=== PATIENT | male | born 1965 | race Hispanic/Latino ===

== ENCOUNTER → 2021-12-27 | Day surgery (SDC) | payer OTHER ==
[2021-12-22 10:36] VITALS: BP 135/78
--- NOTE | 2021-12-22 10:52 | PCM.EKG ---
[facility] Test Date: 2021-12-22 Test Time: 10:49:15 Pat Name: ASH SAENZ Department: Room: Gender: M Pot Operator: JENNIFER : 1965 Requested By: ANABELL SMITH Order Number: [id number] Reading MD: Measurements Intervals [place] Rate: 60 P: 13 HI: 194 QRS: 30 QRSD: 86 T: 29 QT: 446 QTc: 446 Interpretive Statements Normal sinus rhythm No previous ECG available for comparison Please click the below link to view image of tracing.
[2021-12-22 11:02] LABS: LYMPHOCYTES % 35.3 % (24.0-44.0); MEAN CORP HGB 28.9 pg (26-34); MONOCYTES % 9.8 % (5.0-12.0); NEUTROPHILS % 50.1 % (41.0-85.0); PLATELET COUNT 254 10^3/uL (150-400); RED CELL DISTRIBUTION WIDTH 13.2 % (11.5-14.5)
[2021-12-22 11:03] LABS: BASOPHIL % 0.4 % (0.0-0.2); EOSINOPHIL # 0.2 10^3/uL (0.0-0.2); EOSINOPHIL % 2.8 % (0.0-5.0); LYMPHOCYTES # 2.63 10^3/uL1 (1.0-4.8); MONOCYTES # 0.7 10^3/uL (0.3-0.8); NEUTROPHIL # 3.7 10^3/uL (1.8-7.7)
[~2021-12-27] VITALS: Ht 167.6 cm; Wt 112.9 kg
[2021-12-27] VITALS (12 sets, daily range): BP systolic 97–146; BP diastolic 55–83
[~2021-12-27] MED LIST: ASPI-667 PO; ATOR80TA PO; BUSP10TA PO; CIPR500T86 PO; CLOT15CR TP; DECADRON ONE; DIPRIVAN IV ONE; EZET10TA20 PO; FENO145T PO; LACTATED RINGERS 1,000 ML IV SCH; LACTATED RINGERS 1,000 ML ONE; LEVAQUIN 100 ML IV ONE; LEVO175T5 PO; LISI20TA21 PO; METF500T17 PO; NS 1000ML 1,000 ML IV SCH; NS 3000ML IRR IR ONE; PANT40TA3 PO; PEPCID IV ONE; SENSORCAINE 0.5% VIAL ONE; SODIUM CHLORIDE IRR BOTTLE IR ONE; SUBLIMAZE ONE; SUCR1ORA13 PO; TRAM50TA PO; XYLOCAINE 2% 5ML VIAL ONE; ZOFRAN ONE; [UNRECOGNIZED DRUG - CODE] PO
--- NOTE | 2021-12-27 12:09 | OPH ---
DATE OF SURGERY: 12/27/2021 DICTATOR NAME: Ozzy Vargas MD PREOPERATIVE DIAGNOSES: Urethral stenosis and phimosis. FINAL DIAGNOSES: Urethral stenosis and phimosis. PROCEDURE: Cystoscopy with urethral dilatation and circumcision. DESCRIPTION OF PROCEDURE: The patient was first initially brought to the cystoscopy room, was put in supine position on the cystoscopy table. After the patient was given a satisfactory and adequate LMA general anesthesia, the patient was placed in the lithotomy position. The genitalia was then prepped and draped aseptically in the usual manner. The [employer] initially did a dorsal nerve block in the penis. The patient was then prepped and draped aseptically in the usual manner. First, the distal urethra was stenotic and this was dilated with curved sounds up to 20-[place] and then a 17-[place] cystourethroscope was used to do a cystoscopy using a foroblique lens under direct vision and there was some congestion noted in the urethra, otherwise in the prostate, there was some mild hyperplasia noted. No evidence of obstruction and the bladder was normal. No tumor, no calculi, no ulcerations seen. After this, cystoscopy with urethral dilatation was done. The patient was put back in the supine position and was transferred to the operating room. While in the operating room, the patient was then prepped again in the penile region and after proper draping of the patient, a circumcision was done first. The prepuce was retracted as back as possible and a circumferential incision was done on the mucosa around 1 centimeter from the coronal sulcus and then a proportionate incision was done on the skin circumferentially and the skin and the mucosa was excised circumferentially. All bleeders were clamped and fulgurated. After adequate hemostasis, an interrupted suture of 2-0 chromic catgut was done through the skin and mucosa circumferentially. After that, there was no bleeding noted. Procedure was terminated. Dressing was applied. The patient was then awakened, was transferred to the recovery room in stable condition. Ozzy Vargas MD DR: OLY/ARIANNA/JUAN TID: [id number] RECEIPT: [id number]
== END | disposition home or self-care (01) ==
LOC: SDC 06:35
PROVIDERS: ATTEND Urology
DX: N47.1 Phimosis (principal); Q64.33 Congenital stricture of urinary meatus; R39.12 Poor urinary stream; I10 Essential (primary) hypertension; M19.90 Unspecified osteoarthritis, unspecified site; E78.00 Pure hypercholesterolemia, unspecified; J44.9 Chronic obstructive pulmonary disease, unspecified; E11.9 Type 2 diabetes mellitus without complications; K21.9 Gastro-esophageal reflux disease without esophagitis; Z98.890 Other specified postprocedural states; Z90.49 Acquired absence of other specified parts of digestive tract; Z79.82 Long term (current) use of aspirin; Z79.84 Long term (current) use of oral hypoglycemic drugs; Z79.01 Long term (current) use of anticoagulants; Z79.899 Other long term (current) drug therapy
CPT/HCPCS: 36415; 52281; 54161; 80048; 82948; 83036; 85025; 85610; 85730; 93005; A4217 ×2; J1100; J1956; J2001; J2405; J3010; J3490 ×3; J7120; C1758